=== PATIENT | male | born 2000 | race Caucasian/White ===

== ENCOUNTER 2023-09-02 17:55 | Emergency (ER) | payer BC, MEDICAID ==
[~2023-09-02] VITALS: Ht 167.6 cm; Wt 59.0 kg
[2023-09-02 18:00] VITALS: BP_SYST 115; PULSE 60; RESP 18; TEMP 97.8; O2SAT 97
== END 2023-09-02 19:53 | disposition left against medical advice (07) ==
LOC: SED 17:55
DX: H57.89 Other specified disorders of eye and adnexa (principal); Z53.21 Procedure and treatment not carried out due to patient leaving prior to being seen by health care provider
CPT/HCPCS: 99281